=== PATIENT | male | born 1985 | race Caucasian/White ===

== ENCOUNTER → 2020-05-01 | Outpatient (CLI) | payer OTHER ==
--- NOTE | 2020-05-01 18:37 | RAD ---
CLINICAL HISTORY: LT TESTICULAR PAIN AND LUMP COMPARISON: None available. TECHNIQUE: Ultrasound images of the scrotum was performed with solomon-scale and color doppler. FINDINGS: The right testis measures 3.4 x 3.6 x 2.2 cm. The left testis measures 3 x 2.8 x 2 x 1 cm. There is no intratesticular abnormality. Testicular vascularity is symmetric and within normal limits. The epididymis bilaterally is mildly heterogeneous without dominant mass with grossly symmetric vascularity. Right epididymis measures 1.1 x 0.7 x 0.6 cm. The left epididymis measures 1.1 x 1.3 x 1.3 cm There is no hydrocele. Bilateral varicoceles are seen. IMPRESSION: 1. Bilateral varicoceles are seen. 2. No dominant testicular mass is identified. Electronically signed by: Raulito Vazquez MD (05/01/2020 6:34 PM) [id number]
== END | disposition home or self-care (01) ==
LOC: US 16:50
PROVIDERS: ATTEND Family Medicine
DX: I86.1 Scrotal varices (principal); N50.9 Disorder of male genital organs, unspecified
CPT/HCPCS: 76870